=== PATIENT | female | born 1985 | race Caucasian/White ===

== ENCOUNTER 2023-11-04 15:10 | Outpatient (CLI) | payer BC | END 2023-11-04 15:11 | disposition home or self-care (01) | LOC: CSHMAMMO 15:10 | PROVIDERS: ATTEND Internal Medicine Gastroenterology | DX: Z13.820 Encounter for screening for osteoporosis (principal); K51.90 Ulcerative colitis, unspecified, without complications | CPT/HCPCS: 77080 ==